=== PATIENT | male | born 1975 | race African-American/Black ===

== ENCOUNTER 2016-07-18 19:36 | Emergency (ER) | payer MEDICAID, OTHER ==
[~2016-07-18] VITALS: Ht 188 cm; Wt 99.8 kg
[2016-07-19 04:03] VITALS: BP 110/62
== END 2016-07-19 04:47 | disposition home or self-care (01) ==
LOC: ER 19:49
DX: G89.29 Other chronic pain (principal); M54.9 Dorsalgia, unspecified; I10 Essential (primary) hypertension
CPT/HCPCS: 72100

== ENCOUNTER 2016-08-20 23:35 | Emergency (ER) | payer MEDICAID ==
[~2016-08-20] VITALS: Ht 188 cm; Wt 92.5 kg
[2016-08-21 07:34] VITALS: BP 109/66
[2016-08-21] MEDS ORDERED: KETOROLAC TROMETH 60MG/2ML VIAL IM ONE (09:00)
== END 2016-08-21 09:15 | disposition home or self-care (01) ==
LOC: ER 23:40
DX: S33.5XXA Sprain of ligaments of lumbar spine, initial encounter (principal); I10 Essential (primary) hypertension; X58.XXXA Exposure to other specified factors, initial encounter; Y93.89 Activity, other specified; Y99.8 Other external cause status; Y92.89 Other specified places as the place of occurrence of the external cause
CPT/HCPCS: 72131; 96372; 99284; J1885